=== PATIENT | male | born 1965 | race African-American/Black ===

== ENCOUNTER 2022-05-06 14:42 | Emergency (ER) | payer MEDICARE, MEDICAID ==
[~2022-05-06] VITALS: Ht 182.9 cm; Wt 140.6 kg
--- NOTE | 2022-05-06 14:54 | NUR ---
DR. DENNIS AT BEDSIDE TO ASSESS PT.
[2022-05-06 14:55] VITALS: BP_SYST 145
[2022-05-06] MEDS ORDERED: ASPIRIN 81 MG TAB.CHEW PO ONE (15:00)
--- NOTE | 2022-05-06 15:00 | NUR ---
Placed in room 6 . Placed on cardiac monitor technician, blood pressure machine and pulse oximeter. To gown for exam. Side rails up. Report given to CARISSA HI.
[2022-05-06 15:12] LABS: BASOPHILS % (AUTO) 0.4 % (0.0-2.0); EOSINOPHILS # (AUTO) 0.3 K/uL (0.0-0.4); EOSINOPHILS % (AUTO) 3.1 % (0.0-4.0); HEMATOCRIT 41.8 % (36-54); LYMPHOCYTES # (AUTO) 2.1 K/uL (1.0-5.5); MEAN CORPUSCULAR VOLUME 89 fL (79.0-98.0); MONOCYTES % (AUTO) 12.3 % (1.7-9.3); NEUTROPHILS % (AUTO) 59.2 % (40.0-70.0); PLATELET COUNT (AUTO) 230 K/uL (130-430); RED BLOOD CELL COUNT(AUTO) 4.72 MIL/uL (4.2-6.2); RED CELL DISTRIBUTION WIDTH 15.1 % (9.0-15.0); WHITE BLOOD COUNT (AUTO) 8.4 K/uL (4.8-10.8)
--- NOTE | 2022-05-06 15:22 | NUR ---
POERTABLE XRAY AT THE BEDSIDE
[2022-05-06 15:38] LABS: ANION GAP 9 (5-15); CALCIUM 8.9 mg/dL (8.4-11.0); CHLORIDE 105 mmol/L (98-107); CREATININE 1.21 mg/dL (0.55-1.30); GLUCOSE 101 mg/dL (70-99); POTASSIUM 3.7 mmol/L (3.5-5.1); UREA NITROGEN, BLOOD 10 mg/dL (8-21)
[2022-05-06 15:47] LABS: ALANINE AMINOTRANSFERASE 41 U/L (12-78); ALBUMIN 3.8 g/dL (3.4-4.8); ASPARTATE AMINOTRANSFERASE 114 U/L (10-37); TOTAL BILIRUBIN 0.7 mg/dL (0.0-1.0)
[2022-05-06 16:03] LABS: GFR AFRICAN AMERICAN 79 mL/min (>90)
[2022-05-06] MEDS ORDERED: NITROGLYCERIN 0.4 MG TAB.SUBL SL ONE (16:15)
[2022-05-06] MEDS ORDERED: HEPARIN SODIUM,PORCINE 5,000 UNITS/ML VIAL IVP ONE (16:30)
--- NOTE | 2022-05-06 16:30 | NUR ---
PT MADE AWARE HE WILL TRANSFER TO [facility] FOR HIGH LEVEL OF CARE.
--- NOTE | 2022-05-06 17:54 | NUR ---
PER PRISCILLA, CNO DO NOT CALL 911 FOR TRANPORT TO [facility] TO [facility]ATH[facility], TO FOLLOW CURRENT [facility] TRANSPORT WITH PICKUP ETA OF 5 MIN FROM NOW.
--- NOTE | 2022-05-06 18:14 | NUR ---
Patient to be transferred to [facility]. Is being transferred due to higher level of care. Receiving facility has accepting physician and available space. ER physician has signed transfer form. Patient or responsible green party has agreed to transfer and signed form. Patient belongings inventoried and will be sent with patient. Copy of nursing notes, lab reports, EKG, Physicians Orders and X-rays to be sent with patient. Report called to CARISSA HERRERA at receiving facility. Receiving physician is DR. HAINES. ETA is IS [id number]. PT TRANSPORTING AT THIS TIME.
[2022-05-06 18:24] VITALS: BP_SYST 144
== END 2022-05-06 18:24 | disposition short-term general hospital (02) ==
LOC: SED 14:42
DX: I21.4 Non-ST elevation (NSTEMI) myocardial infarction (principal); R07.9 Chest pain, unspecified; R20.2 Paresthesia of skin; I10 Essential (primary) hypertension; F12.90 Cannabis use, unspecified, uncomplicated; Z79.899 Other long term (current) drug therapy
CPT/HCPCS: 99291; 96374; 80053; 83880; 85025; 84484; 36415; 93005; 71045; 99292; J1644